=== PATIENT | female | born 1955 | race Caucasian/White ===

== ENCOUNTER → 2017-01-30 16:35 | Outpatient (CLI) | payer BC ==
[2009-08-17 09:22] VITALS: BMI 18.6
== END | disposition home or self-care (01) ==
LOC: D.MAMMO 01-17 13:00
DX: Z12.31 Encounter for screening mammogram for malignant neoplasm of breast (principal)

== ENCOUNTER → 2017-02-23 20:23 | Outpatient (CLI) | payer BC ==
[2009-08-17 09:22] VITALS: BMI 18.6
== END | disposition home or self-care (01) ==
LOC: D.MAMMO 13:00
DX: R92.8 Other abnormal and inconclusive findings on diagnostic imaging of breast (principal)

== ENCOUNTER → 2017-11-09 09:30 | Outpatient (CLI) | payer BC ==
[2009-08-17 09:22] VITALS: BMI 18.6
== END ==
LOC: D.MAMMO 09:30
DX: Z85.3 Personal history of malignant neoplasm of breast (principal)

== ENCOUNTER → 2018-06-14 19:55 | Outpatient (CLI) | payer BC ==
[2009-08-17 09:22] VITALS: BMI 18.6
== END | disposition home or self-care (01) ==
LOC: D.MAMMO 09:30
DX: Z85.3 Personal history of malignant neoplasm of breast (principal)